=== PATIENT | male | born 1970 ===

== ENCOUNTER 2024-10-10 06:44 | Day surgery (SDC) | payer OTHER ==
[2024-10-10] MEDS ORDERED: DIPHENHYDRAMINE HCL 50 MG/ML VIAL 1ML IV ONE (10:15)
[2024-10-10] MEDS ORDERED: fentaNYL CITRATE 50 MCG/ML AMPUL IV PUSH ONE (10:15)
[2024-10-10] MEDS ORDERED: MIDAZOLAM HCL 2 MG/2 ML VIAL IV ONE (10:15)
== END 2024-10-10 11:25 | disposition home or self-care (01) ==
LOC: AMB-ENDOS 06:44
PROVIDERS: ATTEND Colon & Rectal Surgery
DX: D12.2 Benign neoplasm of ascending colon (principal); K63.5 Polyp of colon